=== PATIENT | male | born 1995 | race Hispanic/Latino ===

== ENCOUNTER 2018-02-17 11:04 | Emergency (ER) | payer SELFPAY ==
--- NOTE | 2018-02-17 12:06 | EDPHYS ---
Physician Documentation [facility] Name: Fahad Cárdenas Age: 22 yrs Sex: Male : 1995 Arrival Date: 02/17/2018 Time: 11:05 Bed 13 Private MD: ED Physician Major Tong HPI: 02/17 12:16 This 22 yrs old Male presents to ER via Ambulatory with complaints of Pain snw With Urination. 12:16 The patient presents with a possible STD exposure, urinary symptoms, dysuria, urinary snw frequency. Onset: The symptoms/episode began/occurred suddenly, 3 day(s) ago, and became persistent. Modifying factors: The symptoms are alleviated by nothing. Associated signs and symptoms: The patient has no apparent associated signs or symptoms. Severity of symptoms: At their worst the symptoms were moderate. The patient has not experienced similar symptoms in the past. The patient has not recently seen a physician. + unprotected intercourse. Historical: - Allergies: 11:26 No Known Allergies; hb - PSHx: 11:26 None; hb - Immunization history:: Adult Immunizations up to date. - Social history:: Smoking status: Patient/guardian denies using tobacco. - Ebola Screening: : No symptoms or risks identified at this time. ROS: 12:15 Constitutional: Negative for fever, chills, and weight loss, Eyes: Negative for injury, snw pain, redness, and discharge, ENT: Negative for injury, pain, and discharge, Neck: Negative for injury, pain, and swelling, Cardiovascular: Negative for chest pain, palpitations, and edema, Respiratory: Negative for shortness of breath, cough, wheezing, and pleuritic chest pain, Abdomen/GI: Negative for abdominal pain, nausea, vomiting, diarrhea, and constipation, Back: Negative for injury and pain, MS/Extremity: Negative for injury and deformity, Skin: Negative for injury, rash, and discoloration, Neuro: Negative for headache, weakness, numbness, tingling, and seizure. 12:15 : Positive for urinary symptoms, small amounts, burning with urination, Negative for penile discharge, testicular pain Exam: 12:14 Constitutional: This is a well developed, well nourished patient who is awake, alert, snw and in no acute distress. Head/Face: Normocephalic, atraumatic. Eyes: Pupils equal round and reactive to light, extra-ocular motions intact. Lids and lashes normal. Conjunctiva and sclera are non-icteric and not injected. Cornea within normal limits. Periorbital areas with no swelling, redness, or edema. ENT: Nares patent. No nasal discharge, no septal abnormalities noted. Tympanic membranes are normal and external auditory canals are clear. Oropharynx with no redness, swelling, or masses, exudates, or evidence of obstruction, uvula midline. Mucous membranes moist. Neck: Trachea midline, no thyromegaly or masses palpated, and no cervical lymphadenopathy. Supple, full range of motion without nuchal rigidity, or vertebral point tenderness. No Meningismus. Chest/axilla: Normal chest wall appearance and motion. Nontender with no deformity. No lesions are appreciated. Cardiovascular: Regular rate and rhythm with a normal S1 and S2. No gallops, murmurs, or rubs. Normal PMI, no JVD. No pulse deficits. Respiratory: Lungs have equal breath sounds bilaterally, clear to auscultation and percussion. No rales, rhonchi or wheezes noted. No increased work of breathing, no retractions or nasal flaring. Back: No spinal tenderness. No costovertebral tenderness. Full range of motion. Skin: Warm, dry with normal turgor. Normal color with no rashes, no lesions, and no evidence of cellulitis. MS/ Extremity: Pulses equal, no cyanosis. Neurovascular intact. Full, normal range of motion. Neuro: Awake and alert, GCS 15, oriented to person, place, time, and situation. Cranial nerves II-XII grossly intact. Motor strength 5/5 in all extremities. Sensory grossly intact. Cerebellar exam normal. Normal gait. 12:14 Abdomen/GI: Inspection: abdomen appears normal, Bowel sounds: normal, Palpation: mild abdominal tenderness, in the suprapubic area. Vital Signs: 11:25 BP 149 / 89; Pulse 82; Resp 16; Temp 98.9(TE); Pulse Ox 100% ; Pain 5/10; hb 13:16 BP 134 / 99; Pulse 81; Resp 16; Pulse Ox 100% on R/A; mb3 MDM: 11:49 Patient medically screened. snw 12:15 Data reviewed: vital signs, nurses notes. Data interpreted: Pulse oximetry: on room air snw is 100 %. Interpretation: normal. Counseling: I had a detailed discussion with the patient and/or guardian regarding: the historical points, exam findings, and any diagnostic results supporting the discharge/admit diagnosis, the presence of at least one elevated blood pressure reading (>120/80) during this emergency department visit, lab results, the need for outpatient follow up, to return to the emergency department if symptoms worsen or persist or if there are any questions or concerns that arise at home. Special discussion: Based on the patient's Hx, exam, and Dx evaluation, there is no indication for emergent surgery or inpatient Tx. It is understood by the patient/guardian that if the Sx's persist or worsen they need to return immediately for re-evaluation. Based on the history and exam findings, there is no indication for further emergent testing or inpatient evaluation. I discussed with the patient/guardian the need to see the primary care provider for further evaluation of the symptoms. 02/17 11:50 Order name: Urine Culture snw 02/17 11:50 Order name: Urine Microscopic Only; Complete Time: 13:03 snw 02/17 11:50 Order name: Urine Dipstick-Ancillary (obtain specimen); Complete Time: 12:01 snw 02/17 12:03 Order name: Urine Dipstick--Ancillary (enter results); Complete Time: 12:17 ss Administered Medications: 12:36 Drug: Rocephin (cefTRIAXone) 1 grams Route: IM; Site: left gluteus; mb3 13:14 Follow up: Response: No adverse reaction mb3 12:36 Drug: Zithromax 1 grams Route: PO; mb3 13:14 Follow up: Response: No adverse reaction mb3 Disposition: 15:30 Co-signature as Attending Physician, Major Tong MD I agree with the assessment and namrata plan of care. Disposition: 02/17/18 12:06 Discharged to Home. Impression: Urethritis and urethral syndrome. - Condition is Stable. - Discharge Instructions: Sexually Transmitted Disease, Urethritis, Adult, Safe Sex. - Medication Reconciliation Form, Thank You Letter, Antibiotic Education, Prescription Opioid Use form. - Follow up: Private Physician; When: 1 - 2 days; Reason: Recheck today's complaints, Continuance of care, Re-evaluation by your physician. Follow up: Emergency Department; When: As needed; Reason: Worsening of condition. Signatures: Dispatcher [employer] EDMS Major Tong MD MD cha Therrien, Shelly, HYPNOTHERAPIST-C HYPNOTHERAPIST-Csnw Mary Beth Li, JOE RN Keon Aguilar RN RN mb3 Corrections: (The following items were deleted from the chart) 13:15 12:06 02/17/2018 12:06 Discharged to Home. Impression: Urethritis and urethral mb3 syndrome. Condition is Stable. Forms are Medication Reconciliation Form, Thank You Letter, Antibiotic Education, Prescription Opioid Use. Follow up: Private Physician; When: 1 - 2 days; Reason: Recheck today's complaints, Continuance of care, Re-evaluation by your physician. Follow up: Emergency Department; When: As needed; Reason: Worsening of condition. snw
--- NOTE | 2018-02-17 12:06 | ER ---
Nurse's Notes [facility] Name: Fahad Cárdenas Age: 22 yrs Sex: Male : 1995 Arrival Date: 02/17/2018 Time: 11:05 Bed 13 Private MD: Diagnosis: Urethritis and urethral syndrome Presentation: 02/17 11:23 Presenting complaint: Patient states: Burning with urination, difficulty urinating, and hb lower abdominal pain x 3 days. Denies fever/discharge. Transition of care: patient was not received from another setting of care. Onset of symptoms was February 14, 2018. Risk Assessment: Do you want to hurt yourself or someone else? Patient reports no desire to harm self or others. Initial Sepsis Screen: Does the patient meet any 2 criteria? No. Patient's initial sepsis screen is negative. Does the patient have a suspected source of infection? No. Patient's initial sepsis screen is negative. Care prior to arrival: None. 11:23 Method Of Arrival: Ambulatory hb 11:23 Acuity: [place] 3 hb Triage Assessment: 13:14 General: Behavior is calm, cooperative, appropriate for age. mb3 Historical: - Allergies: 11:26 No Known Allergies; hb - PSHx: 11:26 None; hb - Immunization history:: Adult Immunizations up to date. - Social history:: Smoking status: Patient/guardian denies using tobacco. - Ebola Screening: : No symptoms or risks identified at this time. Screenin:13 Abuse screen: Denies threats or abuse. Nutritional screening: No deficits noted. mb3 Tuberculosis screening: No symptoms or risk factors identified. Fall Risk None identified. Assessment: 13:12 General: Appears in no apparent distress. comfortable. Pain: Complains of pain in mb3 groin. Neuro: No deficits noted. Cardiovascular: No deficits noted. Respiratory: No deficits noted. GI: No deficits noted. : Reports burning with urination, urgency. EENT: No signs and/or symptoms were reported regarding the EENT system. Vital Signs: 11:25 BP 149 / 89; Pulse 82; Resp 16; Temp 98.9(TE); Pulse Ox 100% ; Pain 5/10; hb 13:16 BP 134 / 99; Pulse 81; Resp 16; Pulse Ox 100% on R/A; mb3 ED Course: 11:05 Patient arrived in ED. as 11:25 Triage completed. hb 11:25 Arm band placed on right wrist. hb 11:44 Maryjane Denis FNP-C [facility]. snw 11:44 Major Tong MD is Attending Physician. snw 11:52 Keon Earl, RN is Primary Nurse. mb3 12:14 Urine collected: clean catch specimen, cloudy. mh5 12:15 Patient has correct armband on for positive identification. Bed in low position. Call mh5 light in reach. Adult w/ patient. 12:15 Urine Culture Sent. mh5 12:15 Urine Microscopic Only Sent. mh5 13:14 No provider procedures requiring assistance completed. Patient did not have IV access mb3 during this emergency room visit. Administered Medications: 12:36 Drug: Rocephin (cefTRIAXone) 1 grams Route: IM; Site: left gluteus; mb3 13:14 Follow up: Response: No adverse reaction mb3 12:36 Drug: Zithromax 1 grams Route: PO; mb3 13:14 Follow up: Response: No adverse reaction mb3 Outcome: 12:06 Discharge ordered by . snw 13:13 Discharged to home ambulatory. mb3 13:13 Condition: stable 13:13 Discharge instructions given to patient, Instructed on discharge instructions, follow up and referral plans. Demonstrated understanding of instructions, follow-up care. 13:15 Patient left the ED. mb3 Signatures: Maryjane Denis FNP-C [employer]-Csnw Khadijah Frausto Heather, JOE DIAZ Gracie Frausto [facility] Keon Earl, RN RN mb3
[2018-02-17 12:13] LABS: Urine Blood NEGATIVE (NEG); Urine Glucose NEGATIVE (NEG); Urine Protein TRACE (NEG); Urine Specific Gravity 1.015 (1.005-1.030); Urine pH 8.5 (5.0-7.0)
[2018-02-17] MEDS ORDERED: AZITHROMYCIN 250 MG TAB ONE (12:28)
[2018-02-17] MEDS ORDERED: CEFTRIAXONE 1000 MG/VIAL ONE (12:29)
[2018-02-17] MEDS ORDERED: LIDOCAINE 1% MPF 2 ML AMPULE ONE (12:29)
[2018-02-17 13:00] LABS: Urine Bacteria <20 /HPF (NONE SEEN); Urine Culture Reflex Order NOT NEEDED; Urine Mucus 1+ /HPF (NONE SEEN); Urine RBC <5 /HPF (NONE SEEN)
== END 2018-02-17 13:15 | disposition home or self-care (01) ==
LOC: ER 11:04
DX: N34.3 Urethral syndrome, unspecified (principal)
CPT/HCPCS: 81003; 81015; 87086; 87088; 96372; 99283; J2001